=== PATIENT | female | born 1995 | race Hispanic/Latino ===

== ENCOUNTER 2017-10-02 20:00 | Emergency (ER) | payer SELFPAY ==
[2017-10-02 21:40] LABS: Urine Blood TRACE (NEG); Urine Glucose NEGATIVE (NEG); Urine Protein NEGATIVE (NEG); Urine Specific Gravity >1.030 (1.005-1.030); Urine pH 6.5 (5.0-7.0)
[2017-10-02 22:27] LABS: Absolute Monocytes 0.4 K/uL (0.1-1.3); Absolute Neutrophil 3.3 K/uL (1.8-8.0); Basophils % 0.5 % (0-1.3); Eosinophils % 1.8 % (0-4.4); Hematocrit 38.4 % (36.0-45.0); Lymphocytes % 33.5 % (15.3-44.8); MCH 30.3 pg (27.0-35.0); MCV 91.5 fL (80-100); MPV 7.8 fL (7.6-11.3); Monocytes % 7.2 % (3.3-12.3); RBC Red Blood Cell Count 4.19 M/uL (3.86-4.86)
[2017-10-02 22:33] LABS: Bicarbonate 30 mEq/L (21-31); Glucose Level 86 mg/dL (65-120); Lipase 29 U/L (22-51); Potassium 3.5 mEq/L (3.6-5.0); Sodium Level 139 mEq/L (135-145)
[2017-10-02 22:39] LABS: ALT/SGPT 15 IU/L (10-60); AST/SGOT 17 IU/L (10-42); Albumin 4.6 g/dL (3.2-5.5); Alkaline Phosphatase 48 IU/L (42-121); Amylase Level 56 U/L (28-100); BUN Blood Urea Nitrogen 14 mg/dL (6-20); Bilirubin Direct < 0.1 mg/dL (0-0.2); Bilirubin Total 0.5 mg/dL (0.3-1.2); Protein, Total 7.2 g/dL (6.0-8.3)
--- NOTE | 2017-10-02 23:21 | EDPHYS ---
Physician Documentation [facility] Name: Dorinda Christine Age: 22 yrs Sex: Female : 1995 Arrival Date: 10/02/2017 Time: 20:03 Bed 24 Private MD: ED Physician Kole Ndiaye HPI: 10/02 22:55 This 22 yrs old Female presents to ER via Ambulatory with complaints of kb Abdominal Pain. 22:55 The patient presents with abdominal pain in the upper abdomen. kb 22:56 Onset: The symptoms/episode began/occurred 3 week(s) ago. The symptoms do not radiate. kb Associated signs and symptoms: Pertinent positives: diarrhea, Pertinent negatives: nausea and vomiting, fever. The symptoms are described as crampy. Modifying factors: The symptoms are alleviated by nothing, the symptoms are aggravated by nothing. Severity of pain: At its worst the pain was mild moderate in the emergency department the pain is unchanged. The patient has not experienced similar symptoms in the past. The patient has not recently seen a physician. 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 - Social history:: Smoking status: Patient/guardian denies using tobacco. ROS: 22:56 Constitutional: Negative for fever, chills, and weight loss, Cardiovascular: Negative kb for chest pain, palpitations, and edema, Respiratory: Negative for shortness of breath, cough, wheezing, and pleuritic chest pain, Back: Negative for injury and pain, : Negative for injury, bleeding, discharge, and swelling, MS/Extremity: Negative for injury and deformity, Skin: Negative for injury, rash, and discoloration, Neuro: Negative for headache, weakness, numbness, tingling, and seizure. 22:56 Abdomen/GI: Positive for abdominal pain, diarrhea, Negative for nausea and vomiting, constipation, abdominal cramps, abdominal distension, anorexia. Exam: 22:56 Constitutional: This is a well developed, well nourished patient who is awake, alert, kb and in no acute distress. Head/Face: Normocephalic, atraumatic. Chest/axilla: Normal chest wall appearance and motion. Nontender with no deformity. No lesions are appreciated. Cardiovascular: Regular rate and rhythm with a normal S1 and S2. No gallops, murmurs, or rubs. Normal PMI, no JVD. No pulse deficits. Respiratory: Lungs have equal breath sounds bilaterally, clear to auscultation and percussion. No rales, rhonchi or wheezes noted. No increased work of breathing, no retractions or nasal flaring. Abdomen/GI: Soft, non-tender, with normal bowel sounds. No distension or tympany. No guarding or rebound. No evidence of tenderness throughout. Back: No spinal tenderness. No costovertebral tenderness. Full range of motion. Skin: Warm, dry with normal turgor. Normal color with no rashes, no lesions, and no evidence of cellulitis. MS/ Extremity: Pulses equal, no cyanosis. Neurovascular intact. Full, normal range of motion. Neuro: Awake and alert, GCS 15, oriented to person, place, time, and situation. Cranial nerves II-XII grossly intact. Motor strength 5/5 in all extremities. Sensory grossly intact. Cerebellar exam normal. Normal gait. Vital Signs: 20:26 BP 103 / 72; Pulse 79; Resp 16; Temp 98.6(O); Pulse Ox 100% on R/A; Weight 49.9 kg; aa1 Height 5 ft. 1 in. (154.94 cm); Pain 8/10; 23:58 BP 109 / 53; Pulse 73; Resp 16; Pulse Ox 100% on R/A; rk2 20:26 Body Mass Index 20.78 (49.90 kg, 154.94 cm) aa1 MDM: 21:32 Patient medically screened. kb 22:56 Data reviewed: vital signs, nurses notes. Data interpreted: Pulse oximetry: on room air kb is 100 %. Interpretation: normal. Counseling: I had a detailed discussion with the patient and/or guardian regarding: the historical points, exam findings, and any diagnostic results supporting the discharge/admit diagnosis, lab results, the need for outpatient follow up, a family practitioner, to return to the emergency department if symptoms worsen or persist or if there are any questions or concerns that arise at home. 04/30 21:12 Order name: Urine Dipstick--Ancillary (enter results); Complete Time: 21:42 ak1 10/02 21:12 Order name: Urine --Ancillary (enter results); Complete Time: 21:42 ak1 10/02 21:56 Order name: Amylase, Serum; Complete Time: 22:40 kb 10/02 21:56 Order name: Basic Metabolic Panel; Complete Time: 22:40 kb 10/02 21:56 Order name: CBC with Diff; Complete Time: 22:29 kb 10/02 21:56 Order name: Hepatic Function; Complete Time: 22:40 kb 10/02 21:56 Order name: Urine Test (obtain specimen); Complete Time: 22:17 kb 10/02 21:56 Order name: Lipase; Complete Time: 22:40 kb 10/02 21:56 Order name: IV Saline Lock; Complete Time: 22:17 kb 10/02 21:56 Order name: Labs collected and sent; Complete Time: 22:17 kb 10/02 21:56 Order name: Urine Dipstick-Ancillary (obtain specimen); Complete Time: 22:17 kb 10/02 22:49 Order name: PO challenge; Complete Time: 23:21 kb Administered Medications: No medications were administered Disposition: 10/03 00:12 Co-signature as Attending Physician, Kole Ndiaye MD. [email or web address] Disposition: 10/02/17 23:21 Discharged to Home. Impression: Diarrhea, unspecified. - Condition is Stable. - Discharge Instructions: Food Choices to Help Relieve Diarrhea, Adult, Diarrhea, [id number]. - Medication Reconciliation Form, Thank You Letter, Antibiotic Education, Prescription Opioid Use form. - Follow up: Emergency Department; When: As needed; Reason: Worsening of condition. Follow up: Private Physician; When: 2 - 3 days; Reason: Recheck today's complaints, Continuance of care, Re-evaluation by your physician. Signatures: Dispatcher [employer] Kyra Calvin, BLACK BARBA-Katherine Moses, RN RN aa1 Kole Ndiaye MD MD pkl Izzy Florez RN RN rk2
--- NOTE | 2017-10-02 23:21 | ER ---
Nurse's Notes [facility] Name: Dorinda Christine Age: 22 yrs Sex: Female : 1995 Arrival Date: 10/02/2017 Time: 20:03 Bed 24 Private MD: Diagnosis: Diarrhea, unspecified Presentation: 10/02 20:25 Presenting complaint: Patient states: upper abd pain, diarrhea, and dizziness x 3 aa1 weeks. Transition of care: patient was not received from another setting of care. Onset of symptoms was September 07, 2017. Initial Sepsis Screen: Does the patient meet any 2 criteria? No. Patient's initial sepsis screen is negative. Does the patient have a suspected source of infection? No. Patient's initial sepsis screen is negative. Care prior to arrival: None. 20:25 Method Of Arrival: Ambulatory aa1 20:25 Acuity: STEVE 3 aa1 Triage Assessment: 20:26 General: Appears in no apparent distress. comfortable, Behavior is calm, cooperative, aa1 appropriate for age. 23:00 Pain: Complains of pain in abdomen. Neuro: Level of Consciousness is alert, obeys rk2 commands, Oriented to person, place, time, situation. GI: Reports upper abdominal pain, diarrhea. 23:00 Respiratory: Airway is patent Respiratory effort is even, unlabored, Respiratory rk2 pattern is regular, symmetrical. Derm: Skin is pink, warm \T\ dry. [employer]: 20:26 LMP N/A - control method aa1 Historical: - Allergies: 20:26 No Known Allergies; aa1 - Home Meds: 20:26 None [Active]; aa1 - PMHx: 20:26 None; aa1 - PSHx: 20:26 ; aa1 - Immunization history:: Adult Immunizations up to date. - Social history:: Smoking status: Patient/guardian denies using tobacco. Screenin:00 Abuse screen: Denies threats or abuse. rk2 23:00 Nutritional screening: No deficits noted. Tuberculosis screening: No symptoms or risk rk2 factors identified. Fall Risk None identified. Assessment: 23:00 GI: Bowel sounds Abd is soft Abdomen is tender to palpation. rk2 Vital Signs: 20:26 BP 103 / 72; Pulse 79; Resp 16; Temp 98.6(O); Pulse Ox 100% on R/A; Weight 49.9 kg; aa1 Height 5 ft. 1 in. (154.94 cm); Pain 8/10; 23:58 BP 109 / 53; Pulse 73; Resp 16; Pulse Ox 100% on R/A; rk2 20:26 Body Mass Index 20.78 (49.90 kg, 154.94 cm) aa1 ED Course: 20:03 Patient arrived in ED. al2 20:26 Triage completed. aa1 20:26 Arm band placed on left wrist. Patient placed in waiting room, Patient notified of wait aa1 time. 21:32 [facility] kb 21:32 Kole Ndiaye MD is Attending Physician. kb 22:15 Initial lab(s) drawn, by me, sent to lab. Inserted saline lock: 20 gauge in right aa1 antecubital area, using aseptic technique. Blood collected. 23:00 Patient has correct armband on for positive identification. Bed in low position. Call rk2 light in reach. Pulse ox on. 23:18 Izzy Florez, RN is Primary Nurse. rk2 23:59 No provider procedures requiring assistance completed. IV discontinued. rk2 Administered Medications: No medications were administered Outcome: 23:21 Discharge ordered by . kb 23:59 Discharged to home ambulatory. rk2 23:59 Condition: good 23:59 Discharge instructions given to patient. 10/03 00:01 Patient left the ED. rk2 Signatures: Kyra Carranza FNP-C FNP-Ckb Kern, Alissa, RN RN aa1 Sammie Hunt iaIzzy Hanley, KAITLYNN RN rk2
== END 2017-10-03 00:01 | disposition home or self-care (01) ==
LOC: ER 20:00
DX: R19.7 Diarrhea, unspecified (principal)
CPT/HCPCS: 36415; 80048; 80076; 81003; 81025; 82150; 83690; 85025; 99283